=== PATIENT | female | born 1970 | race Caucasian/White ===

== ENCOUNTER 2017-01-18 19:37 | Emergency (ER) | payer BC, MEDICAID ==
[2017-01-18] MEDS ORDERED: NEOMY SULF/POLYMYX B SULF/HC 100 DROP BTL RIGHT EAR ONE (20:19)
--- NOTE | 2017-01-18 20:21 | ERNOTE ---
ENT HPI Date of Service: 01/18/17 Presenting Symptoms: other - Earache Time Seen by Provider: 01/18/17 20:12 Source: patient, RN notes reviewed Exam Limitations: no limitations - Immun/Allergies/Home Medications Immunizations: IMMUNIZATION HX Immunizations Up to Date Yes Allergies/Adverse Reactions: Allergies Allergy/AdvReac Type Severity Reaction Status Date / Time No Known Allergies Allergy Verified 01/18/17 19:45 Home Medications: HOME MEDICATIONS NK [No Home Medication] 01/18/17 [Last Taken Unknown] - History of Present Illness Narrative: 47 y/o female ambulatory to the ED for right ear pain that began last night. She has to wear ear plugs for her job and has had infections from them in the past. Date (Duration): 01/17/17 ENT Location: Present: ear (R) Prearrival Treatment: Present: no prearrival treatment Prior Treament: Reports: similar symptoms before. Denies: recently seen Review of Systems - Review of Systems Constitutional: Present: malaise. Absent: fever, chills EYE: Present: no symptoms reported ENT: Present: ear pain. Absent: ear discharge, nose congestion, nasal drainage , sore throat Respiratory: Absent: shortness of breath, cough Cardiology: Present: no symptoms reported Gastrointestinal/Abdominal: Present: no symptoms reported Genitourinary: Present: no symptoms reported Musculoskeletal: Absent: muscle pain, neck pain Skin: Absent: rash, lesions Neurological: Present: headache. Absent: dizziness/light-headedness Endocrine: Present: no symptoms reported Hematologic/Lymphatic: Present: no symptoms reported Psych: Present: no symptoms reported - Patient's Past Medical History Patient History - Medical: No pertinent hx Patient History - Cardiac/Respiratory: No pertinent hx Patient History - Cancer: No Hx of Cancer Patient History - Surgical Procedures: Back Surgery Patient History - Other: None LMP (females 10-50): Menopausal - Social History Living Situations: spouse Psych History: No pertinent hx Smoking Status: Former smoker Alcohol Use: none Drug Use: none - Immunizations Immunizations Up to Date: Yes Physical Exam - Physical Exam General Appearance: Present: wd/wn, alert, no apparent distress Eye Exam: Normal inspection: bilateral Ears, Nose, Throat: Present: other - right external ear canal inflammed and edematous, tender to palpation, TM not visualized. Absent: abnormal TM (L), nasal congestion, sinus pain/drainage, pharyngeal swelling Neck: Present: normal inspection, nontender, supple Respiratory: Present: no respiratory distress, normal breath sounds, no accessory muscle use, lungs clear Cardiovascular/Chest: Present: regular rate, rhythm, no murmur Neurological Exam: Present: alert, oriented, normal mood/affect Skin Exam: Present: normal color, warm/dry ED Progress - Vital Signs Patient's Vital Signs:: I have reviewed the patient's vital signs. Vital Signs: Vital Signs 01/18/17 19:41 Temperature 36.6 C Pulse Rate 108 H Respiratory 18 Rate Blood Pressure 185/86 O2 Sat by Pulse 100 Oximetry - Progress/Reassessment Chief Complaint: Earache Progress:: Unchanged Departure Clinical Impression: Otitis externa, acute Qualifiers: Otitis externa type: other infective Laterality: right Qualified Code(s): H60.391 - Other infective otitis externa, right ear - Departure Disposition: Home self-care Condition: Good Instructions: Otitis Externa, [id number]
[2017-01-18] MEDS ORDERED: NEOMY SULF/POLYMYX B SULF/HC 100 DROP BTL ONE (20:22)
[2017-01-18 20:33] VITALS: BP 132/86
== END 2017-01-18 20:29 | disposition home or self-care (01) ==
LOC: ER 19:37
DX: H60.391 Other infective otitis externa, right ear (principal); Z87.891 Personal history of nicotine dependence